=== PATIENT | female | born 1980 | race Two or more races ===

== ENCOUNTER 2020-09-16 04:12 | Day surgery (SDC) | payer OTHER ==
[~2020-09-16] VITALS: Ht 160 cm; Wt 58.3 kg
--- NOTE | 2020-09-16 04:41 | NUR ---
PT WAS DIAGNOSED BY FAMILY PROVIDER AT HOME WITH A KIDNEY STONE. REPORTS THAT ON PT PASSED KIDNEY STONE AND HAD SOME PAIN RELIEF. SINCE YESTERDAY, PT BEGAN HAVING MORE RIGHT LOWER FLANK PAIN, DOWN RIGHT SIDE OF ABDOMIN AND RADIATING INTO BLADDER. PT REPORTS PAIN IS A 10/10, STILL URINATING, NO SIGNIFICANT MEDICAL HX OR HISTORY OF KIDNEY STONES. PT REPORTS N/V. PT RESTING ON GURNEY, APPEARS SLIGHTLY UNCOMFORTABLE, PLACED ON SPO2/BP MONITORING, WCTM.
[2020-09-16] MEDS ORDERED: ONDANSETRON 2MG/ML, 2ML ONE ×2 (05:09→15:07)
[2020-09-16] MEDS ORDERED: MORPHINE SULFATE 4 MG/ML, 1ML ONE ×3 (05:09→10:30)
[2020-09-16] MEDS: MORPHINE SULFATE 4 MG/ML, 1ML IVPush PRN ×2 (05:12→06:47)
--- NOTE | 2020-09-16 05:21 | NUR ---
PT MEDICATED PER MAR FOR PAIN AND N/V. PT NAD, APPEARS MORE COMFORTABLE AFTER MEDICATION. SO AT BS, BED IN LOWEST, RAILS ENGAGED, CALL LIGHT ON LAP, VSS, WCTM. WAITING FOR UA/LABS/CT.
[2020-09-16] MEDS ORDERED: SODIUM CHLORIDE FLUSH 10ML SYR IVF ONE (05:30)
[2020-09-16] MEDS ORDERED: ONDANSETRON 2MG/ML, 2ML IVPush ONE (05:30)
[2020-09-16 05:31] LABS: BASOPHILS % (AUTO) 0 % (0-1); EOSINOPHILS % (AUTO) 0 % (1-7); LYMPHOCYTES % (AUTO) 4 % (22-44); MEAN CORPUSCULAR HEMOGLOBIN 30.6 pg (27.0-34.8); MEAN CORPUSCULAR HGB CONC 34.4 g/dL (32.4-35.8); MEAN PLATELET VOLUME 8.5 fL (7.4-10.4); MICROSCOPIC INDICATED; MONOCYTES % (AUTO) 4 % (2-9); NEUTROPHILS % (AUTO) 92 % (42-75); PLATELET COUNT 269 x10^3/uL (130-400); RED BLOOD COUNT 4.23 x10^6/uL (3.82-5.3); RED CELL DISTRIBUTION WIDTH 13.1 % (9.6-15.2)
[2020-09-16 05:36] LABS: ALBUMIN 4.2 g/dL (3.4-5.0); ANION GAP 9 mmol/L (5-15); CALCIUM 8.6 mg/dL (8.5-10.1); CHLORIDE 99 mmol/L (98-107)
[2020-09-16 05:40] LABS: ALANINE AMINOTRANSFERASE 19 U/L (12-78); ALKALINE PHOSPHATASE 58 U/L (45-117); BILIRUBIN,TOTAL 0.7 mg/dL (0.2-1.0); CREATININE 0.89 mg/dL (0.55-1.02); TOTAL PROTEIN 7.4 g/dL (6.4-8.2)
--- NOTE | 2020-09-16 06:03 | NUR ---
pt to ct at this time via stuart thakkar, no change in condition, wctm
[2020-09-16 06:22] LABS: MD SCAN
--- NOTE | 2020-09-16 06:52 | NUR ---
pt medicated per jun for pain, resting on gurney, nad. bedside report to jasmina rucker, pt care transferred at this time.
--- NOTE | 2020-09-16 07:20 | NUR ---
MD Perez back to bedside to update pt on POC, including consulting with urology. Pt denies pain and nausea at this time.
--- NOTE | 2020-09-16 07:55 | NUR ---
MD Perez back to bedside to update pt on POC including plan for sx and rapid COVID swab.
--- NOTE | 2020-09-16 08:23 | NUR ---
THROUGHPUT RN: CALL TO OR, PT TO GO TO SURGERY AT 1430.
[2020-09-16] MEDS ORDERED: ONDANSETRON 2MG/ML, 2ML IVPush PRN (08:30)
[2020-09-16] MEDS ORDERED: MORPHINE SULFATE 4 MG/ML, 1ML IVPush PRN (08:30)
--- NOTE | 2020-09-16 08:30 | NUR ---
Pt educated to use call light if she has pain or nausea to request meds. Call light in reach.
[2020-09-16] MEDS ORDERED: SODIUM CHLORIDE FLUSH 10ML SYR IVF PRN (09:00)
[2020-09-16] MEDS ORDERED: SODIUM CHLORIDE 0.9% 1,000 ML IV ONE (09:00)
[2020-09-16 10:34] VITALS: BP 133/76
--- NOTE | 2020-09-16 10:37 | NUR ---
Pt moved to hospital bed. Pt crying from pain. Visitor at bedside.
--- NOTE | 2020-09-16 12:52 | NUR ---
Pt ambulatory to bathroom, steady gait.
--- NOTE | 2020-09-16 13:18 | NUR ---
Report to OR, RN. Pt educated about being naked under gown and sending valubles home with visitor. First column completed to the best of this RN's ability.
[2020-09-16] MEDS ORDERED: CHLORHEXIDINE 15 ML UDC ONE (13:48)
[2020-09-16] MEDS ORDERED: OMNIPAQUE 350 MG/ML, 50 ML BOTTLE ONE (13:52)
[2020-09-16] MEDS ORDERED: OXYcodone 5 MG/5 ML ORAL.SOL UDC PO PRN (14:00)
[2020-09-16] MEDS ORDERED: CHLORHEXIDINE 15 ML UDC PO ONE (14:00)
[2020-09-16] MEDS ORDERED: HYDROmorphone 1 MG/ML, 1ML INJ IVPush PRN (14:00)
[2020-09-16] MEDS ORDERED: LABETALOL 5MG/ML, 20ML IV PRN (14:00)
[2020-09-16] MEDS ORDERED: PROMETHAZINE 25 MG/ML, 1ML IVPush PRN (14:00)
[2020-09-16] MEDS ORDERED: DIPHENHYDRAMINE 50 MG/ML, 1ML IVPush PRN (14:00)
[2020-09-16] MEDS ORDERED: FENTANYL PF 100 MCG/2ML IV PRN (14:00)
[2020-09-16] MEDS ORDERED: MEPERIDINE/PF 25MG/0.5ML IVPush PRN (14:00)
[2020-09-16] MEDS ORDERED: HALOPERIDOL 5 MG/ML IV PRN (14:00)
[2020-09-16] MEDS ORDERED: hydrALAzine 20 MG/ML, 1ML IV PRN (14:00)
[2020-09-16] MEDS ORDERED: MIDAZOLAM 1 MG/ML, 2ML ONE (14:10)
[2020-09-16] MEDS ORDERED: FENTANYL PF 250 MCG/5ML ONE (14:11)
[2020-09-16] MEDS ORDERED: KETOROLAC 30 MG/1 ML ONE ×2 (14:40)
[2020-09-16] MEDS ORDERED: CEFAZOLIN 1,000 MG ONE (15:07)
[2020-09-16] MEDS ORDERED: DEXAMETHASONE 4 MG/ML, 1ML ONE (15:07)
[2020-09-16] MEDS ORDERED: PROPOFOL 10 MG/ML, 20ML ONE (15:07)
== END 2020-09-16 17:05 | disposition home or self-care (01) ==
LOC: ED 04:58 → OUT 08:06 → UNDOADMIN 08:06 → EDIP 08:06 → OUT 17:05 → UNDODISIN 17:05
PROVIDERS: ATTEND Urology
DX: N13.2 Hydronephrosis with renal and ureteral calculous obstruction (principal); Z20.822 Contact with and (suspected) exposure to COVID-19; Z79.899 Other long term (current) drug therapy; Z90.710 Acquired absence of both cervix and uterus
CPT/HCPCS: 36415; 52353; 74018; 74176; 80053; 81001; 82360; 85025; 87086; 87635; 88300; 96374; 96375; 96376; 99285; C1726; C1758; J0690; J1100; J1885; J2250; J2270; J2405; J2704; J3010; J7030; Q9967; 76000

== ENCOUNTER → 2020-12-11 | Outpatient (CLI) | payer OTHER | END | disposition home or self-care (01) | LOC: CFH 10:09 | PROVIDERS: ATTEND Physician Assistant | DX: N60.01 Solitary cyst of right breast (principal); N13.30 Unspecified hydronephrosis; N20.0 Calculus of kidney; N63.11 Unspecified lump in the right breast, upper outer quadrant | CPT/HCPCS: 76642; 76770; 77062; 77066; G0279 ==

== ENCOUNTER 2021-01-01 12:36 | Outpatient (CLI) | payer OTHER | END 2021-01-01 23:59 | disposition home or self-care (01) | LOC: CFH 12:36 | PROVIDERS: ATTEND Physician Assistant | DX: N20.0 Calculus of kidney (principal); N13.30 Unspecified hydronephrosis | CPT/HCPCS: 74176 ==